=== PATIENT | female | born 1945 | race Caucasian/White ===

== ENCOUNTER 2021-04-09 09:42 | Outpatient (REF) | payer MEDICARE, SELFPAY ==
[2021-04-09 11:46] LABS: Thyroid Stimulating Hormone 0.33 uIU/mL (0.32-4.0)
[2021-04-09 12:17] LABS: T4 Thyroxine 7.5 ug/dL (4.5-12.0)
[2021-04-10 10:32] LABS: T3 Uptake 30 % (22-35)
[2021-04-12 23:12] LABS: Acetylcholine Receptor Binding <0.30 nmol/L
[2021-04-17 21:36] LABS: Acetylcholine Recept. Blocking <15 (<15)
[2021-04-23 19:37] LABS: Acetylcholine Recep Modulating 31
== END 2021-04-09 09:43 | disposition home or self-care (01) ==
LOC: HO.LAB 09:42
PROVIDERS: PCP Nurse Practitioner Primary Care; Visit Provider Psychiatry & Neurology Neurology
DX: H53.2 Diplopia (principal); H05.20 Unspecified exophthalmos
CPT/HCPCS: 36415; 83519; 84436; 84443; 84479